=== PATIENT | female | born 1995 ===

== ENCOUNTER 2019-03-27 22:45 | Emergency (ER) | payer OTHER ==
[2019-03-27 22:45] VITALS: BMI 34.0
[2019-03-27 23:20] VITALS: RESP 16; TEMP 98.9
[2019-03-27 23:48] LABS: BASO % 0.3 % (0.0-2.0); EOS % 0.2 % (0.0-4.0); HEMOGLOBIN 13.4 g/dL (12.0-16.0); LYMPH # 0.5 K/uL (1.0-4.3); LYMPH % 6.5 % (20.0-40.0); MEAN CELL VOLUME 90.6 fl (81.0-99.0); MEAN CORPUSCULAR HEMOGLOBIN 30.4 pg (27.0-31.0); MEAN CORPUSCULAR HGB CONC 33.6 g/dL (33.0-37.0); MEAN PLATELET VOLUME 9.3 fl (7.2-11.7); MONO # 0.3 K/uL (0.0-0.8); MONO % 4.7 % (0.0-10.0); NEUT # 6.5 K/uL (1.8-7.0); NEUT % 88.3 % (50.0-75.0); PLATELET COUNT 222 K/uL (130-400); RBC 4.41 Mil/uL (3.80-5.20); RED CELL DISTRIBUTION WIDTH 13.3 % (11.5-14.5); WHITE BLOOD COUNT 7.4 K/uL (4.8-10.8)
[2019-03-27] MEDS ORDERED: Sodium Chloride 0.9% 1,000 ML IV STA (23:48)
[2019-03-27 23:55] LABS: URINE BACTERIA RARE (<OCC); URINE BILIRUBIN NEGATIVE (NEGATIVE); URINE BLOOD NEGATIVE (NEGATIVE); URINE CLARITY SLIGHTY-CLOUDY (Clear); URINE COLOR YELLOW (YELLOW); URINE GLUCOSE (UA) NEG (NEGATIVE); URINE LEUKOCYTE ESTERASE NEG Leu/uL (Negative); URINE PROTEIN 30 mg/dL (NEGATIVE)
[2019-03-28 00:05] LABS: ALB/GLOB RATIO 1.3 (1.0-2.1); ALBUMIN 4.5 g/dL (3.5-5.0); ALT/SGPT 47 U/L (9-52); AST/SGOT 36 U/L (14-36); BLOOD UREA NITROGEN 15 mg/dl (7-17); CALCIUM 9.1 mg/dL (8.4-10.2); GFR NON-AFRICAN AMERICAN > 60; LIPASE 48 U/L (23-300)
--- NOTE | 2019-03-28 00:49 | ED PDOC ---
HPI: Abdomen Time Seen by Provider: 03/27/19 23:23 Chief Complaint (Nursing): GI Problem Chief Complaint (Provider): Abdominal Pain, Nausea, Vomiting History Per: Patient History/Exam Limitations: no limitations Onset/Duration Of Symptoms: Days (1) Current Symptoms Are (Timing): Still Present Location Of Pain/Discomfort: Epigastric Additional Complaint(s): 24 year old female with anxiety presents to the ED for an evaluation of abdominal pain, nausea and vomiting onset for one day. Patient reports of 6 episodes of bilious and non-bloody vomit in the afternoon. The nausea triggered her anxiety. She took Zofran and Klonopin at home without any relief. Otherwise, she denies diarrhea, fever, shortness of breath, cough or any other symptoms. PMD: [place] Justin Past Medical History Reviewed: Historical Data, Nursing Documentation, Vital Signs Vital Signs: Last Vital Signs Temp 98.9 F 03/27/19 23:18 Pulse 91 H 03/27/19 23:18 Resp 16 03/27/19 23:18 BP 104/69 03/27/19 23:18 Pulse Ox 97 03/27/19 23:18 Primary Care Provider: [place] Justin - Medical History PMH: Anxiety, Hypercholesterolemia Denies: Diabetes, Hepatitis, HIV, HTN, Seizures, Sexually Transmitted Disease - Family History Family History: States: Unknown Family Hx - Social History Current smoker - smoking cessation education provided: No Alcohol: None Drugs: Denies - Home Medications Home Medications: Ambulatory Orders Medication Instructions Recorded Alprazolam [Xanax] 1 mg PO PRN PRN 04/12/15 Acetaminophen [Acetaminophen 8 650 mg PO Q8 PRN #21 tablet.er 01/12/19 Hour] Amoxicillin 875 mg PO BID #14 tab 01/12/19 Naproxen 500 mg PO BID PRN #20 tab 01/12/19 Esomeprazole Magnesium [Nexium] 20 mg PO QAM #14 ecc 03/28/19 Ondansetron ODT [Zofran ODT] 4 mg PO Q6 PRN #8 odt 03/28/19 Sucralfate [Carafate Oral Susp] 1 gm PO QID #28 g 03/28/19 - Allergies Allergies/Adverse Reactions: Allergies Allergy/AdvReac Type Severity Reaction Status Date / Time No Known Allergies Allergy Verified 03/27/19 23:18 Review of Systems ROS Statement: Except As Marked, All Systems Reviewed And Found Negative Constitutional: Negative for: Fever Cardiovascular: Negative for: Chest Pain Respiratory: Negative for: Cough, Shortness of Breath Gastrointestinal: Positive for: Nausea, Vomiting, Abdominal Pain. Negative for: Diarrhea Psych: Positive for: Anxiety Physical Exam - Reviewed Nursing Documentation Reviewed: Yes Vital Signs Reviewed: Yes - Physical Exam Appears: Positive for: Non-toxic, No Acute Distress Head Exam: Positive for: ATRAUMATIC, NORMAL INSPECTION, NORMOCEPHALIC Skin: Positive for: Normal Color, Warm, Dry. Negative for: Rash Eye Exam: Positive for: EOMI, Normal appearance, PERRL ENT: Positive for: Other (mucous membrane dry ) Neck: Positive for: Normal, Painless ROM, Supple. Negative for: Decreased ROM Cardiovascular/Chest: Positive for: Regular Rate, Rhythm. Negative for: Murmur Respiratory: Positive for: Normal Breath Sounds. Negative for: Decreased Breath Sounds, Wheezing, Respiratory Distress Gastrointestinal/Abdominal: Positive for: Soft, Tenderness (epigastric, RUQ). Negative for: Guarding, Rebound Back: Positive for: Normal Inspection Extremity: Positive for: Normal ROM. Negative for: Tenderness, Pedal Edema, Deformity Neurological/Psych: Positive for: Awake, Alert, Normal Tone, Oriented (x3). Negative for: Motor/Sensory Deficits - Laboratory Results Result Diagrams: 03/27/19 23:40 03/27/19 23:40 Lab Results: Total Bilirubin 2.0 mg/dl (0.2-1.3) H 03/27/19 23:40 AST 36 U/L (14-36) 03/27/19 23:40 ALT 47 U/L (9-52) 03/27/19 23:40 Alkaline Phosphatase 56 U/L (38-126) 03/27/19 23:40 Total Protein 8.1 G/DL (6.3-8.2) 03/27/19 23:40 Albumin 4.5 g/dL (3.5-5.0) 03/27/19 23:40 Globulin 3.6 gm/dL (2.2-3.9) 03/27/19 23:40 Albumin/Globulin Ratio 1.3 (1.0-2.1) 03/27/19 23:40 Lipase 48 U/L (23-300) 03/27/19 23:40 Urine Color Yellow (YELLOW) 03/27/19 23:40 Urine Clarity Slighty-cloudy (Clear) 03/27/19 23:40 Urine pH 7.0 (5.0-8.0) 03/27/19 23:40 Ur Specific [place] 1.028 (1.003-1.030) 03/27/19 23:40 Urine Protein 30 mg/dL (NEGATIVE) 03/27/19 23:40 Urine Glucose (UA) Neg mg/dL (NEGATIVE) 03/27/19 23:40 Urine Ketones Negative mg/dL (NEGATIVE) 03/27/19 23:40 Urine Blood Negative (NEGATIVE) 03/27/19 23:40 Urine Nitrate Negative (NEGATIVE) 03/27/19 23:40 Urine Bilirubin Negative (NEGATIVE) 03/27/19 23:40 Urine Urobilinogen 4.0 mg/dL (0.2-1.0) H 03/27/19 23:40 Ur Leukocyte Esterase Neg [place]/uL (Negative) 03/27/19 23:40 Urine RBC (Auto) 3 /hpf (0-3) 03/27/19 23:40 Urine Microscopic WBC 1 /hpf (0-5) 03/27/19 23:40 Urine Bacteria Rare (<OCC) 03/27/19 23:40 - ECG O2 Sat by Pulse Oximetry: 97 (RA) Pulse Ox Interpretation: Normal Medical Decision Making Medical Decision Making: Time: 2323 Impression: 24yo female with epigastric pain, nausea, vomiting Plan: CMP Lipase ED ED urine dipstick CBC w/ differential Normal saline 1000 mls/hr Pepcid 20mg Zofran inj Heplock insertion UA Reevaluation 0148 Ultrasound of the gallbladder. Indication: Pain, nausea and vomiting. Technique: Real-time ultrasound images were obtained. Findings: Liver is normal in size measuring 15.1 cm. Normal gallbladder wall thickness measuring 2 mm. No evidence of cholelithiasis or acute cholecystitis. Nondilated common bile duct measuring 3 mm. Unremarkable pancreas. Unremarkable aorta. Unremarkable IVC. Unremarkable right kidney. Impression: Unremarkable exam. Electronically signed on March 28, 2019 1:23:35 AM EDT by: Amina Burroughs M.D., Certified by ABR, MSK, Neuroradiology 0413 Labs present no clinically significant abnormalities. Patient presents improvements and stable for discharge. Patient diagnosed with gastritis Scribe Attestation: Documented by Ingrid Garcia, acting as a scribe for Claudio Roth MD Provider Scribe Attestation: All medical record entries made by the Scribe were at my direction and personally dictated by me. I have reviewed the chart and agree that the record accurately reflects my personal performance of the history, physical exam, medical decision making, and the department course for this patient. I have also personally directed, reviewed, and agree with the discharge instructions and disposition. Disposition - Clinical Impression Clinical Impression: Gastritis - Disposition Disposition: Routine/Home Disposition Time: 04:13 Condition: STABLE Prescriptions: Esomeprazole Magnesium [Nexium] 20 mg PO QAM #14 ecc Ondansetron ODT [Zofran ODT] 4 mg PO Q6 PRN #8 odt PRN Reason: Nausea/Vomiting Sucralfate [Carafate Oral Susp] 1 gm PO QID #28 g Instructions: Gastritis Forms: [employer] (Welsh)
[2019-03-28 01:40] LABS: LYMPHOCYTE 7 % (20-50); MONOCYTE 5 % (0-10); NEUTROPHIL 88 % (42-75); PLATELET ESTIMATE NORMAL (NORMAL); TOTAL CELLS COUNTED 100
[2019-03-28] MEDS ORDERED: Sucralfate 1 gm/10 ml Oral Susp UD ONE (02:46)
[2019-03-28 04:44] VITALS: BP 111/66; PULSE 78; O2SAT 100
--- NOTE | 2019-03-28 18:16 | US ---
Date of service: 03/28/2019 HISTORY: Abdominal pain/N/V COMPARISON: None. TECHNIQUE: Sonographic evaluation of the right upper quadrant of the abdomen. FINDINGS: LIVER: Measures 15.1 cm in length. Normal echogenicity of the liver parenchyma. No mass. No intrahepatic bile duct dilatation. Portal vein exhibits hepatopetal flow GALLBLADDER: Unremarkable. No gallstones. No sonographic Nieves sign COMMON BILE DUCT: Measures 3.0 mm. No stones. No dilatation. PANCREAS: Unremarkable as visualized. No mass. No ductal dilatation. RIGHT KIDNEY: Measures 10.6 x 4.6 x 4.2 cm in length. Normal echogenicity. No calculus, mass, or hydronephrosis. AORTA: No aneurysmal dilatation. IVC: Unremarkable. OTHER FINDINGS: None . IMPRESSION: No evidence of cholelithiasis. No acute findings.
== END 2019-03-28 04:41 | disposition home or self-care (01) ==
LOC: H.ER 22:45
DX: K29.70 Gastritis, unspecified, without bleeding (principal); Z79.899 Other long term (current) drug therapy; F41.9 Anxiety disorder, unspecified; E78.00 Pure hypercholesterolemia, unspecified
CPT/HCPCS: 76705; 80053; 81003; 81025; 83690; 85025; 96374; 96375; 96376; 99284; J2060; J2405; J7030